=== PATIENT | female | born 1970 | race Caucasian/White ===

== ENCOUNTER 2016-08-20 08:53 | Emergency (ER) | payer OTHER ==
[~2016-08-20] VITALS: Ht 170.2 cm; Wt 90.7 kg
[2016-08-20 09:00] VITALS: BP 124/75
[2016-08-20] MEDS ORDERED: AUGMENTIN 875-1 EAC1 ORAL (09:25)
[2016-08-20] MEDS ORDERED: FLONASE ALLERG9.9 ML NS (09:25)
[2016-08-20] MEDS ORDERED: PSEUDOEPHEDRINE30 MG PO (09:25)
[2016-08-20 09:36] VITALS: BP 125/86
--- NOTE | 2016-08-20 10:38 | Emergency Room Report ---
History of Present Illness General Chief Complaint: Upper Respiratory Illness Source: Patient Present Illness HPI [id number] [employer] patient with 2-3 days sinus congestion, rhinorrhea, nasal drip, sinus pressure. History of sinusitis Not on Abx currently Denies fever/chills Allergies: Coded Allergies: PINEAPPLE (Verified Allergy, Unknown, 08/20/16) Patient History Past Medical History: none Past Surgical History: none Pertinent Family History: none Social History: Denies: alcohol use, drug use, smoking Last Menstrual Period: 08/12/16 Now: No Immunizations: UTD Reviewed Nursing Documentation: PMH: Agreed, PSxH: Agreed Nursing Documentation-PMH Past Medical History: No Stated History Review of Systems All Other Systems: negative except mentioned in HPI Physical Exam Vital Signs Date Time Temp Pulse Resp B/P Pulse Ox O2 Delivery O2 Flow Rate FiO2 08/20/16 08:57 98.4 99 15 127/85 98 Room Air Sp02 EP Interpretation: reviewed, normal General Appearance: normal inspection, well appearing, no apparent distress, alert, GCS 15, non-toxic Head: normocephalic, atraumatic Eyes: bilateral eye EOMI, bilateral eye PERRL ENT: normal ENT inspection, hearing grossly normal, normal pharynx, no angioedema, normal voice, other - Ttp to frontal, maxillary sinuses Neck: normal inspection, full range of motion, supple, no bony tend Respiratory: normal inspection, lungs clear, normal breath sounds, no respiratory distress, no retraction, no wheezing Cardiovascular #1: regular rate, rhythm, no edema Gastrointestinal: normal inspection, normal bowel sounds, non tender, soft, no guarding, no hernia Genitourinary: no CVA tenderness Musculoskeletal: normal inspection, back normal, normal range of motion, Khadar' s Sign negative Neurologic: normal inspection, alert, oriented x3, responsive, boxing instructor III-XII nml as tested, motor strength/tone normal, speech normal Psychiatric: normal inspection, judgement/insight normal, mood/affect normal Skin: normal inspection, normal color, no rash Medical Decision Making Diagnostic Impression: Primary Impression: Sinusitis Qualified Codes: J01.91 - Acute recurrent sinusitis, unspecified ER Course Recurrent sinusitis - Ttp sinuses, frontal and maxillary - Rx augmentin, supportive meds PMD followup DC home Last Vital Signs Date Time Temp Pulse Resp B/P Pulse Ox O2 Delivery O2 Flow Rate FiO2 08/20/16 08:57 98.4 99 15 127/85 98 Room Air Status: improved Disposition: HOME, SELF-CARE Condition: Improved Scripts Pseudoephedrine Hcl* (SUDAFED*) 30 Mg Tablet 30 MG PO BID for nasal congestion for 3 Days, #15 TAB Prov: LACI PEREZ M.D. 08/20/16 Fluticasone Propionate (Flonase Allergy Relief) 9.9 Ml Clifford.susp 9.9 ML NS BID for 3 Days, #1 UNIT Prov: LACI PEREZ M.D. 08/20/16 Amoxicillin/Potassium Clav 875-125* (AUGMENTIN 875-125 TABLET*) 1 Each Tablet 1 TAB ORAL TWICE A DAY for 7 Days, #14 TAB Prov: LACI PEREZ M.D. 08/20/16 Referrals: NON PHYSICIAN (PCP) Patient Instructions: Sinusitis, Adult, [id number] Additional Instructions: - Take all antibiotics - augmentin - until finished - Take sudafed twice daily as needed with flonase for nasal congestion - Also could try Neti pot nasal rinse LACI PEREZ M.D. Aug 20, 2016 10:38
== END 2016-08-20 09:36 | disposition home or self-care (01) ==
LOC: EMR 09:00
DX: J32.9 Chronic sinusitis, unspecified (principal)
CPT/HCPCS: 99284

== ENCOUNTER 2016-10-06 18:51 | Emergency (ER) | payer OTHER ==
[~2016-10-06] VITALS: Ht 170.2 cm; Wt 90.7 kg
[~2016-10-06 18:51] MED LIST: AUGMENTIN 875-1 EAC1 ORAL; FLONASE ALLERG9.9 ML NS; PSEUDOEPHEDRINE30 MG PO
[2016-10-06 19:54] LABS: BASOPHILS % (AUTO) 0.9 % (0.0-2.0); LYMPHOCYTES % (AUTO) 32.3 % (20.0-45.0); MEAN CORPUSCULAR HGB CONC 34.9 G/DL (32.0-36.0); MEAN CORPUSCULAR VOLUME 97 FL (80-99); MEAN PLATELET VOLUME 6.7 FL (6.5-10.1); MONOCYTES % (AUTO) 6.4 % (1.0-10.0); NEUTROPHILS % (AUTO) 58.3 % (45.0-75.0); PLATELET COUNT 294 K/UL (150-450); RED BLOOD COUNT 3.58 M/UL (4.20-5.40); RED CELL DISTRIBUTION WIDTH 12.3 % (11.6-14.8); WHITE BLOOD COUNT 8.5 K/UL (4.8-10.8)
[2016-10-06 20:02] LABS: PROTHROMBIN TIME 10.4 SEC (9.30-11.50)
[2016-10-06 20:09] LABS: APPEARANCE,URINE SLIGHTLY CLOUDY; KETONES,URINE 1+ (NEGATIVE); LEUKOCYTE ESTERASE ,URINE NEGATIVE (NEGATIVE); NITRITE,URINE NEGATIVE (NEGATIVE); PH,URINE 5 (4.5-8.0); PROTEIN,URINE 1+ (NEGATIVE); UROBILINOGEN,URINE NORMAL MG/DL (0.0-1.0)
[2016-10-06 20:12] LABS: ALANINE AMINOTRANSFERASE 8 U/L (3-33); ALBUMIN/GLOBULIN RATIO 1.7 (1.0-2.7); ANION GAP 9 (5-15); ASPARTATE AMINO TRANSFERASE 11 U/L (5-40); CALCIUM 9.4 mg/dL (8.6-10.2); CARBON DIOXIDE 27 mEQ/L (20-30); CHLORIDE 101 mEQ/L (98-107); GLOMERULAR FILTRATION RATE > 60 mL/min (>60); HEMOLYSIS 4; LIPASE 25 U/L (< 60); POTASSIUM 4.4 mEQ/L (3.4-4.9); SODIUM 137 mEQ/L (135-145); TOTAL PROTEIN 6.9 g/dL (6.6-8.7)
[2016-10-06 20:18] LABS: RBC,URINE TNTC /HPF (0 - 2)
[2016-10-06 20:19] LABS: SQUAMOUS EPITHELIAL CELL,UR FEW /LPF (NONE/OCC); WBC,URINE 0 /HPF (0 - 2)
[2016-10-06 20:20] LABS: BACTERIA,URINE FEW /HPF
[2016-10-06] MEDS ORDERED: IBUPROFEN600 MG ORAL (21:16)
[2016-10-06 22:00] VITALS: BP 120/70
[2016-10-06 22:47] VITALS: BP 120/70
--- NOTE | 2016-10-07 12:17 | Emergency Room Report ---
History of Present Illness General Chief Complaint: Female Urogenital Problems Source: Patient Present Illness HPI The patient is a 45-year-old female who denies any medical history presenting for vaginal bleeding and lower abdominal pain. She states that she is currently undergoing menstruation and has to change sanitary pad every 2 hours due to saturation. She states that she has never had this problem in the past. Pain is a 5/10 dull cramping sensation. Does not radiate. She denies other symptoms including nausea, vomiting, fever, chills, dysuria, hematuria, fatigue , dizziness Allergies: Coded Allergies: PINEAPPLE (Verified Allergy, Unknown, 08/20/16) Patient History Past Medical History: see triage record Pertinent Family History: none Last Menstrual Period: 10/04/16 Now: No Reviewed Nursing Documentation: PMH: Agreed, PSxH: Agreed Nursing Documentation-PMH Past Medical History: No Stated History Review of Systems All Other Systems: negative except mentioned in HPI Physical Exam Vital Signs Date Time Temp Pulse Resp B/P Pulse Ox O2 Delivery O2 Flow Rate FiO2 10/06/16 18:55 97.9 108 16 135/76 97 Room Air Sp02 EP Interpretation: reviewed, normal General Appearance: no apparent distress, alert, GCS 15, non-toxic Head: normocephalic, atraumatic Eyes: bilateral eye PERRL, bilateral eye normal inspection ENT: hearing grossly normal, normal pharynx, no angioedema, normal voice Neck: full range of motion, supple/symm/no masses Respiratory: chest non-tender, lungs clear, normal breath sounds, speaking full sentences Cardiovascular #1: regular rate, rhythm, no edema Gastrointestinal: soft, no mass, non-distended, no guarding, tenderness - suprapubic Rectal: deferred Genitourinary: normal inspection, no CVA tenderness Musculoskeletal: back normal, gait/station normal, normal range of motion, non- tender Neurologic: alert, oriented x3, responsive, motor strength/tone normal, sensory intact, speech normal Psychiatric: judgement/insight normal, memory normal, mood/affect normal, no suicidal/homicidal ideation Skin: normal color, no rash, warm/dry, well hydrated Medical Decision Making PA Attestation Dr. España is my supervising physician. Patient management was discussed with my supervising physician Diagnostic Impression: Primary Impression: Uterine fibroid Qualified Codes: D25.9 - Leiomyoma of uterus, unspecified Additional Impression: Ovarian cyst Qualified Codes: N83.201 - Unspecified ovarian cyst, right side ER Course The patient is a 45-year-old female presenting with lower pelvic pain and vaginal bleeding Differential diagnoses considered include but not limited to PID, uterine fibroids, appendicitis, , UTI, among others PE: NAD Abdomen is soft. Normal bowel sounds. Tenderness to palpation over suprapubic region only. No CVA tenderness Skin is warm and dry. No pallor Blood work is unremarkable. No anemia. No leukocytosis Urinalysis shows no signs of infection Pelvic ultrasound consistent with uterine fibroids and ovarian cysts. She'll be discharged home with a prescription for Motrin. ER precautions are given Laboratory Tests Test 10/06/16 17:30 White Blood Count 8.5 K/UL (4.8-10.8) Red Blood Count 3.58 M/UL (4.20-5.40) L Hemoglobin 12.2 G/DL (12.0-16.0) Hematocrit 34.8 % (37.0-47.0) L Mean Corpuscular Volume 97 FL (80-99) Mean Corpuscular Hemoglobin 34.0 PG (27.0-31.0) H Mean Corpuscular Hemoglobin Concent 34.9 G/DL (32.0-36.0) Red Cell Distribution Width 12.3 % (11.6-14.8) Platelet Count 294 K/UL (150-450) Mean Platelet Volume 6.7 FL (6.5-10.1) Neutrophils (%) (Auto) 58.3 % (45.0-75.0) Lymphocytes (%) (Auto) 32.3 % (20.0-45.0) Monocytes (%) (Auto) 6.4 % (1.0-10.0) Eosinophils (%) (Auto) 2.0 % (0.0-3.0) Basophils (%) (Auto) 0.9 % (0.0-2.0) Prothrombin Time 10.4 SEC (9.30-11.50) Prothrombin Time INR 1.0 (0.9-1.1) PTT 24 SEC (23-33) Urine Color Yellow Urine Appearance Slightly cloudy Urine pH 5 (4.5-8.0) Urine Specific [place] 1.025 (1.005-1.035) Urine Protein 1+ (NEGATIVE) H Urine Glucose (UA) Negative (NEGATIVE) Urine Ketones 1+ (NEGATIVE) H Urine Occult Blood 5+ (NEGATIVE) H Urine Nitrite Negative (NEGATIVE) Urine Bilirubin Negative (NEGATIVE) Urine Urobilinogen Normal MG/DL (0.0-1.0) Urine Leukocyte Esterase Negative (NEGATIVE) Urine RBC Tntc /HPF (0 - 2) H Urine WBC 0 /HPF (0 - 2) Urine Squamous Epithelial Cells Few /LPF (NONE/OCC) Urine Bacteria Few /HPF (NONE) Urine HCG, Qualitative Negative Sodium Level 137 mEQ/L (135-145) Potassium Level 4.4 mEQ/L (3.4-4.9) Chloride Level 101 mEQ/L (98-107) Carbon Dioxide Level 27 mEQ/L (20-30) Anion Gap 9 (5-15) Blood Urea Nitrogen 13 mg/dL (7-23) Creatinine 1.0 mg/dL (0.5-0.9) H Estimate Glomerular Filtration Rate > 60 mL/min (>60) Glucose Level 119 mg/dL (74-106) H Calcium Level 9.4 mg/dL (8.6-10.2) Total Bilirubin < 0.2 mg/dL (0.0-1.2) Aspartate Amino Transferase (AST) 11 U/L (5-40) Alanine Aminotransferase (ALT) 8 U/L (3-33) Alkaline Phosphatase 83 U/L (35-104) Total Protein 6.9 g/dL (6.6-8.7) Albumin 4.4 g/dL (3.5-5.2) Globulin 2.5 g/dL Albumin/Globulin Ratio 1.7 (1.0-2.7) Lipase 25 U/L (< 60) Lab Results Impression Bloodwork unremarkable. No anemia. UA: no signs of infection. There is significant blood CT/MRI/US Diagnostic Results CT/MRI/US Diagnostic Results : Imaging Test Ordered: pelvic US Impression consistent with uterine fibroids and R ovarian cyst Last Vital Signs Date Time Temp Pulse Resp B/P Pulse Ox O2 Delivery O2 Flow Rate FiO2 10/06/16 22:47 97.8 78 16 120/70 98 Room Air Status: improved Disposition: HOME, SELF-CARE Condition: Improved Scripts Ibuprofen* (MOTRIN*) 600 Mg Tablet 600 MG ORAL Q8H Y for For Pain, #30 TAB 0 Refills Prov: MINE DOWLING 10/06/16 Referrals: NISHA AGUAYO (PCP) Patient Instructions: Uterine Fibroids, Ovarian Cyst Additional Instructions: I discussed my findings with the patient. All questions and concerns have been answered. Treatment and medication compliance have been addressed. I advised the patient that they need to follow up with PMD in 3-5 days. Return to ED if symptoms worsen, new symptoms arise, or if needed for any reason. Patient verbalized understanding of discharge instructions. MINE DOWLING Oct 07, 2016 12:17
--- NOTE | 2016-10-09 08:16 | Diagnostic Imaging Report ---
Indication: Pelvic pain. Negative test. Technique: Transabdominal and endovaginal pelvic ultrasound. Comparison: None Findings: Endometrial echo complex measures 6 mm. Uterus measures 10.0 x 4.5 cm with heterogeneous echogenicity. There is a questionable 2.1 cm hypoechoic area of the uterine fundus. Cervical nabothian cysts are seen. The right ovary measures 5.2 x 3.6 cm with a 3.7 cm apparent cyst. Left ovary measures 2.8 x 2.0 cm and is unremarkable. There is trace fluid in the pelvic cul-de-sac. Impression: Heterogeneous uterus with questionable 2.1 cm hypoechoic area of the uterine fundus. Small uterine fibroid cannot be excluded. Clinical correlation recommended. Endometrial echo complex measures 6 mm. Cervical nabothian cysts. Approximately 3.7 cm anechoic right ovarian cyst. Short-term followup recommended for further evaluation.
== END 2016-10-06 22:30 | disposition home or self-care (01) ==
LOC: EMR 19:08
DX: D25.9 Leiomyoma of uterus, unspecified (principal); N83.201 Unspecified ovarian cyst, right side
CPT/HCPCS: 36415; 76856; 80053; 81003; 81025; 83690; 85025; 85610; 85730; 96374